=== PATIENT | male | born 1950 | race American Indian/Alaskan Native ===

== ENCOUNTER 2024-05-28 06:09 | Inpatient (IN) | payer OTHER, MEDICAID ==
[~2024-05-28] VITALS: Ht 174 cm; Wt 93.2 kg
[2024-05-28 07:09] LABS: Basophils # (auto) 0 10 ^3/uL (0-0.2); Basophils % (auto) 0.3 % (0.0-2.0); Eosinophils # (auto) 0 10 ^3/uL (0-0.8); Eosinophils % (auto) 0.2 % (0.0-7.0); Hematocrit 42.5 % (41.0-53.0); Hemoglobin 14.4 g/dL (13.5-17.5); Lymphocytes # (auto) 1.6 10 ^3/uL (0.4-5.4); Lymphocytes % (auto) 9.8 % (10.0-50.0); Mean Corpuscular Hemoglobin 30.5 pg (28.0-32.0); Mean Corpuscular Volume 89.8 fL (80.0-100.0); Monocytes # (auto) 1.4 10 ^3/uL (0-1.3); Monocytes % (auto) 8.5 % (0.0-12.0); Neutrophils # (auto) 13.1 10 ^3/uL (1.6-8.6); Neutrophils % (auto) 81.2 % (37.0-80.0); Platelet Count (auto) 96 10^3/uL (140-450); Red Blood Cells 4.74 10^6/uL (4.5-5.90); Red Cell Distribution Width 14.8 % (11.8-14.3); White Blood Cell 16.2 10^3/uL (4.4-10.8)
[2024-05-28 07:17] LABS: Chloride 102 mmol/L (98-107); Potassium 3.8 mmol/L (3.5-5.1); Sodium 135 mmol/L (136-145)
[2024-05-28 07:18] LABS: Anion Gap 7 (5-15); Carbon Dioxide 26 mmol/L (20-31)
[2024-05-28 07:19] LABS: Calcium 9.9 mg/dL (8.7-10.4)
[2024-05-28 07:23] LABS: Glucose 130 mg/dL (74-106)
[2024-05-28 07:24] LABS: BUN/Creatinine Ratio 7.6 (10.0-20.0); Blood Urea Nitrogen 8 mg/dL (9-23)
[2024-05-28 07:45] LABS: Urine Bacteria None Seen /hpf (None Seen)
[2024-05-28 08:21] LABS: Urine Blood 2+ /uL (Negative); Urine Clarity Clear (Clear); Urine Color Yellow (Yellow); Urine Mucus FEW (None Seen); Urine Protein, UAD 1+ (Negative); Urine Specific Gravity 1.017 (1.001-1.035); Urine Urobilinogen Normal (Negative); Urine WBC 2 /hpf (0 - 3); Urine pH 6.5 (5.0-9.0)
[2024-05-28 09:00] VITALS: O2SAT 96
[2024-05-28] MEDS: IOHEXOL 300 MG/ML 100ML BOTTLE IJ ONE ×2 (11:40→12:39)
[2024-05-28] MEDS ORDERED: ATOR20TA50 PO (12:29)
[2024-05-28] MEDS ORDERED: HYDROcodone-ACET 5/325MG TAB PO PRN ×2 (12:30→12:45)
[2024-05-28] MEDS ORDERED: MORPHINE SULFATE INJ 2 MG/ml SYRG IV PRN ×3 (12:30→18:00)
[2024-05-28] MEDS ORDERED: ONDANSETRON HCL 4 MG/2 ML VIAL IV PRN (12:30)
[2024-05-28] MEDS ORDERED: ACETAMINOPHEN 325 MG TAB PO PRN ×2 (12:30→12:45)
[2024-05-28] MEDS: cefTRIAXone 1GM/50ML D5W 50 ML IV ONE (12:38)
[2024-05-28] MEDS: SODIUM CHLORIDE 0.9% 1,000 ML IV SCH (12:50)
[2024-05-28] MEDS: DOCUSATE SOD 100 MG CAP PO SCH (13:35)
[2024-05-28] MEDS: PIPERACILLIN-TAZOB 3.375GM 100 ML IV SCH (15:46)
[2024-05-28] MEDS ORDERED: HYDROcodone-ACET 10/325MG TAB PO PRN (18:00)
[2024-05-28 18:45] LABS: INR 1.03 (0.9-1.15); Partial Thromboplastin Time 31.3 SEC (24.5-34.5); Prothrombin Time 10.9 sec (9.3-11.8)
[2024-05-28] MEDS ORDERED: fentaNYL CITRATE 100 MCG/2 ML VL ONE (19:27)
[2024-05-28] MEDS: HEPARIN SODIUM (PORCINE) 5000 UNITS/ML 1ML VIAL ONE (19:44)
[2024-05-28] MEDS ORDERED: ROCURONIUM 10MG/ML 10ML VIAL IV ONE (20:00)
[2024-05-28] MEDS ORDERED: ONDANSETRON HCL 4 MG/2 ML VIAL ONE (20:01)
[2024-05-28] MEDS ORDERED: ePHEDrine SULFATE 50 MG/ML AMP ONE (20:06)
[2024-05-28] MEDS ORDERED: MEPERIDINE HCL (50 MG/ML) 1 ML VIAL ONE (20:13)
[2024-05-28] MEDS ORDERED: SUGAMMADEX 200mg/2ml Vial (100MG/ML) IV ONE (20:25)
[2024-05-28 20:43] VITALS: PULSE 88; RESP 22; O2SAT 100
[2024-05-28] MEDS: LIDOCAINE 1% HCL (LOCAL ANESTH.) INJ 20ML MDV ONE (20:48)
[2024-05-28 21:00] VITALS: PULSE 85; RESP 22; O2SAT 95
[2024-05-28] MEDS ORDERED: HYDROmorphone HCL 2 MG/ML VL/or syr IV PRN (21:00)
[2024-05-28] MEDS ORDERED: MEPERIDINE HCL (25 MG/ML) 1ML VIAL IV PRN (21:00)
[2024-05-28] MEDS ORDERED: ACETAMINOPHEN IV 1000 MG/100ML (10MG/ML) IV PRN (21:00)
[2024-05-28 21:49] VITALS: BP 147/78; PULSE 80; RESP 19; RESP 20; TEMP 99.2; O2SAT 94
[2024-05-29] MEDS: ONDANSETRON HCL 4 MG/2 ML VIAL IV PRN (01:51)
[2024-05-29] MEDS: ACETAMINOPHEN 325 MG TAB PO PRN (04:38)
[2024-05-29] MEDS: PANTOPRAZOLE 40 MG TAB PO SCH (05:09)
[2024-05-29 07:30] VITALS: PULSE 85; RESP 14; O2SAT 98
[2024-05-29 08:32] LABS: Hepatitis B Surface Antigen Negative (Negative)
[2024-05-29 08:53] LABS: Hepatitis C Antibody Negative (Negative)
[2024-05-29 09:00] VITALS: BP 115/74; PULSE 81; RESP 16; TEMP 98.1; O2SAT 95
[2024-05-29] MEDS ORDERED: cefTRIAXone 1GM/50ML D5W 50 ML IV SCH (09:00)
[2024-05-29] MEDS ORDERED: HYDROmorphone HCL 2 MG/ML VL/or syr IV ONE (10:15)
[2024-05-29 11:02] LABS: Alanine Aminotransferase 35 U/L (7-40); Albumin 4.1 g/dL (3.2-4.8); Alkaline Phosphatase 98 U/L (46-116); Anion Gap 9 (5-15); Aspartate Aminotransferase 25 U/L (13-40); BUN/Creatinine Ratio 12.6 (10.0-20.0); Blood Urea Nitrogen 13 mg/dL (9-23); Carbon Dioxide 25 mmol/L (20-31); Chloride 103 mmol/L (98-107); Glucose 133 mg/dL (74-106); Sodium 137 mmol/L (136-145)
[2024-05-29 11:03] LABS: Bilirubin, Total 1.3 mg/dL (0.2-1.0); Total Protein 7.1 g/dL (5.7-8.2)
[2024-05-29 11:07] LABS: Basophils # (auto) 0 10 ^3/uL (0-0.2); Basophils % (auto) 0.1 % (0.0-2.0); Eosinophils # (auto) 0 10 ^3/uL (0-0.8); Eosinophils % (auto) 0.1 % (0.0-7.0); Hematocrit 42.9 % (41.0-53.0); Hemoglobin 14.3 g/dL (13.5-17.5); Lymphocytes # (auto) 0.5 10 ^3/uL (0.4-5.4); Lymphocytes % (auto) 4.3 % (10.0-50.0); Mean Corpuscular Hemoglobin 30.3 pg (28.0-32.0); Mean Corpuscular Hgb Conc. 33.4 g/dL (32.0-36.0); Mean Corpuscular Volume 90.6 fL (80.0-100.0); Monocytes # (auto) 0.8 10 ^3/uL (0-1.3); Monocytes % (auto) 6.4 % (0.0-12.0); Neutrophils # (auto) 11.3 10 ^3/uL (1.6-8.6); Neutrophils % (auto) 89.1 % (37.0-80.0); Platelet Count (auto) 103 10^3/uL (140-450); Red Blood Cells 4.73 10^6/uL (4.5-5.90); Red Cell Distribution Width 14.9 % (11.8-14.3); White Blood Cell 12.7 10^3/uL (4.4-10.8)
[2024-05-29 13:00] VITALS: BP 117/68; PULSE 72; RESP 14; TEMP 97.3; O2SAT 98
[2024-05-29] MEDS: METOCLOPRAMIDE HCL 5MG/ml INJ 2ml VIAL IV ONE (14:35)
[2024-05-29] MEDS: SUCCINYLCHOLINE CHLORIDE 20 MG/ML 10ML VIAL IV ONE (14:35)
[2024-05-29] MEDS: ONDANSETRON HCL 4 MG/2 ML VIAL IV ONE (14:35)
[2024-05-29] MEDS: BUPIVACAINE 0.5% MPF INJ 30ML SDV IJ ONE (14:35)
[2024-05-29] MEDS: ENOXAPARIN SOD 40 MG/0.4 ML SYRINGE SC SCH (14:41)
[2024-05-29 17:00] VITALS: BP 130/78; PULSE 85; RESP 14; TEMP 97.8; O2SAT 98
[2024-05-29 21:00] VITALS: BP 111/62; PULSE 86; RESP 20; TEMP 99.2; O2SAT 92
[2024-05-30] VITALS (7 sets, daily range): BP systolic 98–147; BP diastolic 57–88; PULSE 83–95; RESP 18–19; TEMP 98–100.1; O2SAT 92–95
[2024-05-30 07:40] LABS: Basophils # (auto) 0 10 ^3/uL (0-0.2); Basophils % (auto) 0.1 % (0.0-2.0); Eosinophils # (auto) 0 10 ^3/uL (0-0.8); Eosinophils % (auto) 0.2 % (0.0-7.0); Hemoglobin 13.5 g/dL (13.5-17.5); Lymphocytes # (auto) 0.7 10 ^3/uL (0.4-5.4); Lymphocytes % (auto) 5.5 % (10.0-50.0); Mean Corpuscular Hemoglobin 30.3 pg (28.0-32.0); Mean Corpuscular Hgb Conc. 33.8 g/dL (32.0-36.0); Mean Corpuscular Volume 89.5 fL (80.0-100.0); Monocytes # (auto) 0.5 10 ^3/uL (0-1.3); Neutrophils # (auto) 11.2 10 ^3/uL (1.6-8.6); Neutrophils % (auto) 90.2 % (37.0-80.0); Nucleated Red Blood Cells % 0.1 %; Platelet Count (auto) 100 10^3/uL (140-450); Red Blood Cells 4.47 10^6/uL (4.5-5.90); Red Cell Distribution Width 15.1 % (11.8-14.3); White Blood Cell 12.4 10^3/uL (4.4-10.8)
[2024-05-30] MEDS: LACTULOSE 20Gm/30ML SOLN PO SCH (10:00)
[2024-05-30] MEDS ORDERED: AUG875T PO (11:14)
[2024-05-30] MEDS ORDERED: HYDR-4798 PO (11:14)
== END 2024-05-30 17:29 | disposition home or self-care (01) | DRG 424 ==
LOC: ER 06:09 → OVERFLOW 12:26 → ER 12:32 → CENTRAL 21:40
PROVIDERS: ADMIT Registered Nurse; ATTEND Student in an Organized Health Care Education/Training Program
PROC: 0F9430Z Drainage of Gallbladder with Drainage Device, Percutaneous Approach (ICD-10-PCS; 2024-05-28)
PROC: 0FN44ZZ Release Gallbladder, Percutaneous Endoscopic Approach (ICD-10-PCS; principal; 2024-05-28 19:46)
DX: K81.0 Acute cholecystitis (principal); R65.10 Systemic inflammatory response syndrome (SIRS) of non-infectious origin without acute organ dysfunction; E78.5 Hyperlipidemia, unspecified; K59.00 Constipation, unspecified; I10 Essential (primary) hypertension; E66.9 Obesity, unspecified; D69.6 Thrombocytopenia, unspecified; K66.0 Peritoneal adhesions (postprocedural) (postinfection); K82.8 Other specified diseases of gallbladder; Z68.30 Body mass index [BMI] 30.0-30.9, adult; Z79.899 Other long term (current) drug therapy
CPT/HCPCS: 36415; 71045; 74177; 76705; 80048; 80053; 81001; 85025; 85610; 85730; 86703; 86803; 87040; 87086; 87340; 93005; 99291; G0378; J0330; J2003; J2405; J2543; J3490

== ENCOUNTER 2024-07-06 20:14 | Emergency (ER) | payer OTHER, MEDICAID ==
[~2024-07-06] VITALS: Ht 165.1 cm; Wt 87.7 kg
[~2024-07-06 20:14] MED LIST: ATOR20TA50 PO; AUG875T PO; HYDR-4798 PO
[2024-07-06 20:35] VITALS: BP 119/89; PULSE 113; RESP 24; O2SAT 99
--- NOTE | 2024-07-06 21:37 | ED.PDOC ---
GI ASSESSMENT HPI Comments 74 y.o male presents to the ED for a chief complaint of abdominal pain associated with nausea, vomiting and diarrhea that started earlier today s/p eating. Patient reports feeling distention, had a couple episodes of non bilious non bloody emesis and diarrhea, took 2 325mg of Tylenol and symptoms resolved. At this time, patient is asymptomatic. Patient has a tube placed s/p attempted gallbladder removal on 05/28/24, states he had to follow up in 6 weeks to take it out but has not received call from doctor. At this time he has no pain on the tube site. Chief Complaint: Nausea/Vomiting Time Seen by MD: 21:28 Reviewed Notes: Nurses Notes, Medications, Allergies Allergies: Coded Allergies: NO KNOWN ALLERGIES (Unverified , 05/28/24) Home Meds Active Scripts Hydrocodone-Acetaminophen (Hydrocodone Bitartrate/AC 10-325 mg) 1 Tab Tab, 1 TAB PO TIDPRN PRN for 6 Days, #18 TAB Prov:YOLANDA KEBEDE MD 05/30/24 Amoxicillin & Pot Clavulanate (AUGMENTIN TABLET) 875 Mg Tb, 875 MG PO TID for 12 Days, #36 TAB Prov:YOLANDA KEBEDE MD 05/30/24 Reported Medications Atorvastatin Calcium (ATORVASTATIN CALCIUM) 20 Mg Tab, 1 TAB PO DAILY 05/28/24 Information Source: Patient Mode of Arrival: Ambulatory Timing: Hours Duration: Since onset Quality: Aching Vomitus: Hard Stool: Loose Severity: Moderate Recent: None Recent Hx of: None Pain Location: Diffuse Modifying Factors: Nothing Associated sign and symptoms: Nausea, Vomiting, Diarrhea, Abdominal Pain Past Medical History PAST MEDICAL HISTORY: High Lipids, HTN Surgical History: Denies all surgeries Family History Family History: Unknown Social History Smoker: Non-Smoker Alcohol: Denies ETOH Use Drugs: Denies Drug Use Lives In: Home Constitutional: denies: chills, diaphoresis, fatigue, fever, malaise, sweats, weakness, others EENTM: denies: blurred vision, double vision, ear bleeding, ear discharge, ear drainage, ear pain, ear ringing, eye pain, eye redness, hearing loss, mouth pain, mouth swelling, nasal discharge, nose bleeding, nose congestion, nose pain, photophobia, tearing, throat pain, throat swelling, voice changes, others Respiratory: denies: cough, hemoptysis, orthopnea, SOB at rest, shortness of breath, SOB with excertion, stridor, wheezing, others Cardiovascular: denies: chest pain, dizzy spells, diaphoresis, Dyspnea on exer tion, edema, irregular heart beat, left arm pain, lightheadedness, palpitations, PND, syncope, others Gastrointestinal: reports: abdomen distended, abdominal pain, diarrhea, nausea, vomiting; denies: blood streaked bowels, constipated, dysphagia, difficulty swallowing, hematemesis, melena, poor appetite, poor fluid intake, rectal bleeding, rectal pain, others Genitourinary: denies: burning, dysuria, flank pain, frequency, hematuria, incontinence, penile discharge, penile sore, pain, testicle pain, testicle swelling, urgency, others Neurological: denies: dizziness, fainting, headache, left sided numbness, left sided weakness, numbness, paresthesia, pre-existing deficit, right sided numbness, right sided weakness, seizure, speech problems, tingling, tremors, weakness, others Musculoskeletal: denies: back pain, gout, joint pain, joint swelling, muscle pain, muscle stiffness, neck pain, others Integumetry: denies: bruises, change in color, change in hair/nails, dryness, laceration, lesions, lumps, rash, wounds, others Allergic/Immunocompromised: denies: Difficulty Healing, Frequent Infections, Hives, Itching, others Hematologic/Lymphatic: denies: anemia, blood clots, easy bleeding, easy bruising, swollen glands, others Endocrine: denies: excessive hunger, excessive sweating, excessive thirst, excessive urination, flushing, intolerance to cold, intolerance to heat, unexplained weight gain, unexplained weight loss, others Psychiatric: denies: anxiety, bipolar disorder, depression, hopeless, panic disorder, schizophrenia, sleepless, suicidal, others All Other Systems: Reviewed and Negative Physical Exam General Appearance: No Apparent Distress, Normal HEENT: Normal ENT Inspection, Pharynx Normal, TMs Normal Neck: Full Range of Motion, Non-Tender, Normal, Normal Inspection Respiratory: Chest Non-Tender, Lungs Clear, No Accessory Muscle Use, No Respiratory Distress, Normal Breath Sounds Cardiovascular: No Edema, No JVD, No Murmur, No Gallop, Normal Peripheral Pulses, Regular Rate/Rhythm Breast Exam: Deferred Gastrointestinal: No Organomegaly, Non Tender, No Pulsatile Mass, Normal Bowel Sounds, Soft Genitalia: Deferred Pelvic: Deferred Rectal: Deferred Extremities: No calf tenderness, Normal capillary refill, Normal inspection, Normal range of motion, Non-tender, No pedal edema Musculoskeletal : Apperance: Normal Neurologic: Alert, medical billing representative II-XII nml as Tested, No Motor Deficits, Normal Affect, Normal Mood, No Sensory Deficits Cerebellar Function: Normal Reflexes: Normal Skin: Dry, Normal Color, Warm Lymphatic: No Adenopathy Was a procedure done? Was a procedure done?: No GI differential Dx Differential Diagnosis: Gastroenteritis, Dehydration, Electrolyte Imbalance, Food Poisoning, Viral X-Ray, Labs, Meds, VS Vital Signs Date Time Temp Pulse Resp B/P (MAP) Pulse Ox O2 Delivery O2 Flow Rate FiO2 07/06/24 20:35 98.7 113 24 119/89 (99) 99 X-Ray, Labs, Meds, VS Comment This 72-year-old male presents secondary to now resolved and his abdominal discomfort with nausea and vomiting x2. He had copious amounts of gas is also now resolved. The time I interviewed, he was completely asymptomatic. However, we noticed the patient had a drain going to his right upper quadrant. He states he had the catheter placed at the time of cholecystectomy. He is to follow up sometime soon. However, he has not heard back from the operating surgeon. He was asked to call for an outpatient appointment for the removal of the drain. He will be discharged home with prescription for Zofran. He is asked to advance his diet slowly. Time of 1ST Reevaluation: 21:33 Reevaluation 1ST: Resolved Patient Education/Counseling: Diagnosis, Treatment, Prognosis Family Education/Counseling: No Family Present Departure 1 Departure Time of Disposition: 21:59 Impression: Primary Impression: Nausea & vomiting Disposition: 01 HOME / SELF CARE / HOMELESS Condition: Good Discharged With: Self Critical Care Note Critical Care Time?: No Stability Stability form required: No I personally scribed for JAYLENE GODINEZ MD ([email or web address]) on 07/06/24 at 21:37. Electronically submitted by Betzaida Schneider ([facility]). JAYLENE GODINEZ MD Jul 06, 2024 21:37
[2024-07-06] MEDS ORDERED: ZOFR4T PO (22:00)
[2024-07-06 23:10] LABS: Urine Bacteria None Seen /hpf (None Seen)
[2024-07-06 23:25] LABS: Urine Blood 1+ /uL (Negative); Urine Clarity Clear (Clear); Urine Color Yellow (Yellow); Urine Hyaline Cast MOD /lpf (0 - 2); Urine Mucus FEW (None Seen); Urine Protein, UAD TRACE (Negative); Urine Specific Gravity 1.034 (1.001-1.035); Urine Urobilinogen Normal (Negative); Urine WBC 1 /hpf (0 - 3)
== END 2024-07-06 21:59 | disposition home or self-care (01) ==
LOC: ER 20:14
DX: R11.2 Nausea with vomiting, unspecified (principal); R10.9 Unspecified abdominal pain; R19.7 Diarrhea, unspecified; I10 Essential (primary) hypertension; E78.5 Hyperlipidemia, unspecified; Z79.899 Other long term (current) drug therapy; Z90.49 Acquired absence of other specified parts of digestive tract
CPT/HCPCS: 81001